=== PATIENT | female | born 1955 | race Caucasian/White ===

== ENCOUNTER → 2020-04-15 | Outpatient (CLI) | payer OTHER ==
[~2020-04-15] MED LIST: ASPI-496 PO; Biotin PO; Chromium PO; Fish Oil PO; Folic Acid PO; LEVO150T5 PO; LISI-170 PO; Magnesium PO; Niacin PO; OMEGA DHA PO; POLY17PO5 PO; Potassium PO; SODIUM PO; Tumeric PO; VITAMIN B PO; Vitamin A PO; Vitamin C PO; Vitamin D PO; Vitamin E PO; Zinc PO; [UNRECOGNIZED DRUG - CODE] PO; [UNRECOGNIZED DRUG - OTHER] PO; [UNRECOGNIZED DRUG - OTHER] PO
== END | disposition home or self-care (01) ==
LOC: CFH 14:32
PROVIDERS: ATTEND Internal Medicine
DX: Z12.31 Encounter for screening mammogram for malignant neoplasm of breast (principal)
CPT/HCPCS: 77063; 77067

== ENCOUNTER → 2021-04-21 | Outpatient (CLI) | payer MEDICARE, OTHER | END | disposition home or self-care (01) | LOC: CFH 10:29 | DX: Z12.31 Encounter for screening mammogram for malignant neoplasm of breast (principal) | CPT/HCPCS: 77063; 77067 ==

== ENCOUNTER 2021-05-07 11:35 | Outpatient (CLI) | payer MEDICARE | END 2021-05-07 23:59 | disposition home or self-care (01) | LOC: CFH 11:35 | DX: R92.8 Other abnormal and inconclusive findings on diagnostic imaging of breast (principal) | CPT/HCPCS: 76642; 77065 ==